=== PATIENT | male | born 1955 | race Caucasian/White ===

== ENCOUNTER 2016-05-10 16:28 | Inpatient (IN) | payer MEDICARE ==
--- NOTE | ~2016-05-10 | DS ---
Discharge Summary [facility] [address] [place]. [address] NAME: JOEL ROMANO : 55 STATUS : DIS IN PAT#: [id number] AGE: 61 ADM/REG DATE : 05/10/16 MR#: [id number] REPORT SERV DATE: 05/15/16 DICTATED BY: BRYANT HERNANDEZ DATE: 05/13/16 REPORT STATUS : Draft TRANSCRIBED BY: MODL DATE: 05/13/16 ADMISSION DATE: 05/10/2016 DISCHARGE DATE: 05/13/2016 DISCHARGE DIAGNOSES: 1. Buqol-on-fwolqot systolic congestive heart failure. 2. End-stage ischemic cardiomyopathy. 3. Chronic kidney disease stage 3 to 4. 4. Uncontrolled type 1 diabetes mellitus with multiple complications. 5. Hypertension. 6. Probable history of cerebrovascular accident in the past that was not worked up. 7. Hyperlipidemia. 8. Cachexia of chronic medical disease. 9. Paroxysmal atrial fibrillation. 10.Hypothyroidism. 11.Peripheral vascular disease due to diabetes. 12.Chronic obstructive pulmonary disease with ongoing tobacco abuse. 13.Benign prostatic hypertrophy with urinary retention in the past. 14.History of hematuria in the past. 15.Hypothyroidism. 16.Insomnia. 17.Medical noncompliance. 18.Peripheral neuropathy due to type 1 diabetes mellitus. 19.Restless legs syndrome. 20.Secondary hyperparathyroidism. CONSULTANTS DURING THIS HOSPITALIZATION: Dr. Chaz Vang of Cardiology. Dr. Aleyda Alcaraz of Nephrology. INVASIVE PROCEDURES DONE DURING THIS HOSPITALIZATION: None. BRIEF HISTORY OF PRESENT ILLNESS: The patient is a 61-year-old male with multiple comorbidities and complicated medical history, presented to the hospital with shortness of breath and heart racing, so he was admitted. For detailed history and physical exam, please see note dictated by myself on 05/10/2016. HOSPITAL COURSE: After being admitted to the hospital, this patient was started on IV Bumex. It was noted that the patient had high risk of cardiorenal syndrome because of his low blood pressure, elevated creatinine. Nephrology and Cardiology consultations were obtained. His other medical issues were treated. His home medications were addressed as well. Cardiology's recommendation was to treat his volume overload and was to seek hospice care given his overall long-term medical issues. Two-dimensional echocardiogram was performed, which revealed an ejection fraction of 15% to 20%. Dr. Alcaraz from Nephrology saw the patient in consultation as well and recommended that he was not a good candidate for hemodialysis because of his severe ischemic cardiomyopathy and agreed with seeking hospice. We discussed care with the patient and the family on multiple occasions and all subspecialty Discharge Summary [facility] [address] [place]. [address] NAME: JOEL ROMANO : 55 STATUS : DIS IN PAT#: [id number] AGE: 61 ADM/REG DATE : 05/10/16 MR#: [id number] REPORT SERV DATE: 05/15/16 DICTATED BY: BRYANT HERNANDEZ DATE: 05/13/16 REPORT STATUS : Draft TRANSCRIBED BY: MODL DATE: 05/13/16 physicians discussing the same care. The patient had some reluctance about choosing hospice or palliative care medicine. Dr. Henderson was asked to see the patient and after discussion and meeting with Dr. Henderson, we all agreed that the patient was best candidate for hospice. The patient chose to have hospice, however, he wanted to return to [place] with his son. The patient was seen by [facility] here in the hospital and a plan was decided that the patient will be discharged from the hospital and then within the next 48 hours, return to [place] where he will be enrolled in hospice. Today, I have discussed with the patient that he will be enrolling in hospice in [place]. The patient says he will be leaving here as a regular discharge and then traveling to [place] to meet his and then travel back to [place] for enrolling in hospice. I have answered all questions to the best of my knowledge for the patient and the family. At this time, he remains fairly stable and is being discharged in stable condition. DISCHARGE DISPOSITION: Home with hospice. DISCHARGE ACTIVITY: As tolerated. DISCHARGE DIET: Low sodium, 1800-calorie [employer] diet. DISCHARGE MEDICATIONS: Bumex 2 mg twice daily, Levemir 14 units subcutaneously once every morning, Novolin insulin 6 units before breakfast, Imdur 15 mg every morning, levothyroxine 50 mcg once daily, Toprol-XL 25 mg once every morning, Coumadin 2 mg once with supper, hydralazine 10 mg once every 8 hours, potassium 20 mEq once daily. DISCHARGE FOLLOWUP: With [facility] in [place], [place]. More than 35 minutes spent planning this patient's discharge, reconciling medications, discussing hospice, and arranging hospice and documenting this discharge. MARSHALL/GOLDENL Bryant Hernandez M.D. / [id number] CC: Bryant Hernandez M.D.
--- NOTE | ~2016-05-10 | CN ---
Consultation Report [facility] [address] [place]. [address] NAME: JOEL AMAYA : 55 STATUS : ADM IN PAT#: [id number] AGE: 61 ADM/REG DATE : 05/10/16 MR#: [id number] REPORT SERV DATE: 05/11/16 DICTATED BY: CHAZ QUEEN DATE: 05/10/16 REPORT STATUS : Draft TRANSCRIBED BY: MODL DATE: 05/10/16 CARDIOVASCULAR CONSULTATION DATE OF CONSULTATION: 05/10/2016 INDICATION: Congestive heart failure. HISTORY OF PRESENT ILLNESS: Mr. Amaya is a 61-year-old man previously living in [place], [place] and receiving most of his medical care at [place], [place]. He has a longstanding history of type 1 diabetes since he was age 8. He has been noncompliant with management of his diabetes. Until recently, he has been a regular smoker. He has an extensive history of coronary disease, ischemic cardiomyopathy status post defibrillator, COPD, and chronic kidney disease. He was told in a recent hospital visit by his medical team in [place] that he needed hospice. His son did some research and brought him to [facility] for rehab instead. The patient is now admitted through the emergency room with worsening dyspnea. He is in acute on chronic systolic congestive heart failure. Unfortunately, we have no records from his prior medical care and this is his first hospitalization in the [facility] [place]. He is mainly complaining of shortness of breath. In examining the patient in the room, it is clear he is having Julio C-Diana respiration. PAST MEDICAL HISTORY: 1. Longstanding history of coronary artery disease, details unclear. 2. Ischemic cardiomyopathy, reported EF less than 20%. 3. Status post ICD. 4. COPD. 5. Chronic kidney disease. ALLERGIES: NO KNOWN DRUG ALLERGIES. MEDICATIONS: Lasix 40 mg daily, hydralazine 10 mg every 8 hours, insulin, Imdur 30 mg daily, Synthroid, magnesium oxide, Toprol-XL 25 mg daily, Coumadin, potassium. SOCIAL HISTORY: He is a former smoker. He does not drink alcohol. FAMILY HISTORY: There is no family history of early coronary artery disease. REVIEW OF SYSTEMS: A complete review of systems was obtained from the patient and the family, which is negative in detail except as mentioned above in the HPI. PHYSICAL EXAMINATION: BLOOD PRESSURE: 110/70. PULSE: Heart rate of 75 and regular. RESPIRATIONS: Respiratory Consultation Report [facility] [address] [place]. [address] NAME: JOEL AMAYA : 55 STATUS : ADM IN PAT#: [id number] AGE: 61 ADM/REG DATE : 05/10/16 MR#: [id number] REPORT SERV DATE: 05/11/16 DICTATED BY: CHAZ QUEEN DATE: 05/10/16 REPORT STATUS : Draft TRANSCRIBED BY: NED DATE: 05/10/16 rate of 14. GENERAL: This is a cachectic man, who appears older than his stated age. HEENT: Anicteric. No xanthelasma. Lips without cyanosis. NECK: No JVD. Carotids 2+ and symmetric. No carotid bruits. LUNGS: There is dullness to percussion and auscultation at both bases. COR: Regular rate and rhythm. Normal S1, S2. There is an S3. There is a grade 2/6 holosystolic murmur at the left lower sternal border. ABD: Soft, nontender, nondistended. Normal bowel sounds. No abdominal bruits. EXT: There is 1+ bilateral lower extremity edema. SKIN: Warm. Dry. No venous stasis changes. MS: No kyphosis. NEURO/PSYCH: Oriented x3. No anxiety or depression. LABORATORY STUDIES: White count of 5.9, hematocrit of 32. BNP of 3202. Troponin of 0.03, creatinine of 2.52, potassium of 4.9. EKG: A 12-lead EKG shows sinus rhythm at 75 beats per minute. Intraventricular conduction delay is noted. Left anterior fascicular block. Left ventricular hypertrophy with repolarization abnormalities noted. IMPRESSION: This is a 61-year-old man with multiple chronic medical problems including over 50 years of poorly controlled type 1 diabetes, recent smoking with chronic obstructive pulmonary disease, and extensive history of ischemic coronary disease with an ischemic cardiomyopathy and ICD placement. He is admitted with acute renal failure, acute on chronic congestive heart failure, and to me it looks like this is the end of the road for Mr. Amaya. He is experiencing Julio C-Diana respiration. He is volume overloaded, yet his creatinine is significantly elevated. He was advised to seek hospice care by his long-term medical providers in [place]. We will check an echocardiogram and records from his recent medical evaluations in [place], but I think hospice is likely the best outcome for this patient. BHARAT/NED Chaz Queen M.D. / [id number] CC: Bryant Hernandez M.D.
--- NOTE | ~2016-05-10 | CN ---
Consultation Report [facility] [address] [place]. [address] NAME: JOEL ROMANO : 55 STATUS : ADM IN PAT#: [id number] AGE: 61 ADM/REG DATE : 05/10/16 MR#: [id number] REPORT SERV DATE: 05/11/16 DICTATED BY: ALEYDA BAILON DATE: 05/11/16 REPORT STATUS : Draft TRANSCRIBED BY: MODL DATE: 05/11/16 CONSULTATION DATE OF CONSULTATION: REASON: Acute kidney injury with hyperkalemia and acute on chronic CHF with poorly controlled diabetes mellitus. HISTORY OF PRESENT ILLNESS: This is a very pleasant 61-year-old male patient, who recently relocated to the [facility]. Historically, he has lived in the [facility] and received the bulk of his medical care. Therefore, little data exist here locally of his recent laboratories and findings. The patient states that he was relocated here in effort to improve his current medical situation in regard to his difficulty with controlling his diabetes mellitus as well as his known weakened cardiac status. He had been recently transitioned to [facility] here and started having some low blood pressures, increasing heart rate, and increasing shortness of breath, and was transitioned here to [facility] for evaluation. The patient has end-stage known ischemic cardiomyopathy with renal failure with unknown baseline of these medical diseases due to his previous geographic location and recent relocation. According to reports, there was some expression of possible need for end-of-life planning rather from [facility] physician. The patient's creatinine here on presentation was at 2.52 and has risen to 2.80 with the administration of Bumex drip for volume overload. He also developed hyperkalemia with a potassium of 5.9, which required medical treatment with D50 diuretics and insulin. We were asked to evaluate the patient in light of his worsening renal dysfunction, known ischemic cardiomyopathy, and provide opinion regarding current renal dysfunction and possible treatment courses. The patient is awake and alert, sitting at the bedside with his family who is present during evaluation and provides assistance in recent medical data. He denies current chest pain. He is at baseline somewhat short of breath, but not overtly tachypneic. No nausea, vomiting, or diarrhea. SOCIAL HISTORY: Socially, no ETOH. No illicit drugs. The long history of tobacco abuse. PAST MEDICAL HISTORY: According to available dictations as well as the patient on evaluation is significant for chronic systolic congestive heart failure, chronic kidney disease stage III to stage IV, ischemic cardiomyopathy, uncontrolled diabetes mellitus, peripheral neuropathy, retinopathy, vasculopathy due to diabetes, hypertension, COPD with ongoing tobacco abuse. Question of two previous CVAs that were not worked up, history of hyperlipidemia, paroxysmal atrial fibrillation and chronic anticoagulation. SURGICAL HISTORY: Positive for his previous CABG in 2013, also tonsillectomy. ALLERGIES: HE LISTS NO KNOWN DRUG ALLERGIES. MEDICATIONS: Current active medications include the following: Bumex 2 mg IV q.8 hours, Consultation Report [facility] [address] [facility] [place]. [address] NAME: JOEL ROMANO : 55 STATUS : ADM IN [facility]#: [id number] AGE: 61 ADM/REG DATE : 05/10/16 MR#: [id number] REPORT SERV DATE: 05/11/16 DICTATED BY: ALEYDA BAILON DATE: 05/11/16 REPORT STATUS : Draft TRANSCRIBED BY: NED DATE: 05/11/16 heparin 5000 units subcu, Apresoline 10 mg p.o. q.8, insulin via sliding scale and regular scheduled 6 units subcu, isosorbide mononitrate 50 mg daily, levothyroxine 50 mcg daily, metoprolol 25 mg daily, multivitamin one tab p.o. daily, potassium SR 20 mEq p.o. daily, warfarin 2 mg p.o. daily, insulin Levemir 14 units subcu daily, p.r.n. medications for anti- pain, antiemetics, anti-hypertensives, electrolyte protocol. REVIEW OF SYSTEMS: Review of systems is completed. Please see HPI for pertinent details. PHYSICAL EXAMINATION: VITAL SIGNS: Blood pressure at 169/74, respiratory rate is 18, heart rate 75 beats per minute, 96.8 temperature. GENERAL: He is awake, alert, oriented, cachectic appearing chronically ill-appearing male. The patient sitting at bedside during evaluation. HEENT: Normocephalic and atraumatic. Normal ocular movements. No scleral icterus or conjunctival pallor is appreciated. NECK: Supple without thyromegaly. No JVD or mass. CHEST: Shows positive S1 and S2. No rubs or gallops. LUNGS: Diminished throughout with normal expansion and effort bilaterally. Late crackles at bases without overt rhonchi or wheezes. GI: Shows a rounded obese abdomen without appreciable mass or tenderness. : Deferred. EXTREMITIES: Show positive pulses. No clubbing, cyanosis, or edema. NEUROLOGIC: Appears to be grossly intact. Nonfocal. SKIN: Warm, dry, and intact to visualized surfaces. No rash, lesions, or ecchymosis. PSYCHIATRIC: He appears to be of appropriate mood and affect. Somewhat somnolent, but aware and appropriate. LABORATORY DATA: Pertinent laboratories and imaging to this evaluation: Most recent potassium recheck at 4.3. PA chest and lateral shows developing asymmetric central lateral venous lung consolidation concerning for pneumonia versus asymmetric edema, likely superimposed upon basilar pulmonary fibrotic disease. Most recent electrolyte profile: Sodium 132, potassium 5.9, chloride 101, CO2 17, BUN 62, creatinine 2.80, reflected GFR at 23 mL/minute. Calcium 8.2, phosphorus 5.7, albumin 2.3. WBC is 6.4, RBC 3.73, hemoglobin 11.7, hematocrit 33.9, platelets at 211. BNP 4935.5. Noted ejection fraction on most recent echo at 10% to 15%. IMPRESSION AND PLAN: This is a chronic kidney disease stage III to stage IV 61-year-old male patient, recent relocation here for ongoing medical care with known cardiomyopathy with worsening ejection fraction now at 10% to 15%. Evaluation by Cardiology today with suggestions for palliative/hospice care. His hyperkalemia has been successfully treated. He has been removed at this point from potassium supplementation. He is not overtly tachypneic and appears to be reasonably volume stable post dosing diuretics, but threshold would be low to return him to a Bumex drip if clinically warranted. Unfortunately, in light of his worsening ischemic cardiomyopathy with decreased ejection Consultation Report [facility] [address] [place]. [address] NAME: JOEL ROMANO : 55 STATUS : ADM IN PAT#: [id number] AGE: 61 ADM/REG DATE : 05/10/16 MR#: [id number] REPORT SERV DATE: 05/11/16 DICTATED BY: ALEYDA BAILON DATE: 05/11/16 REPORT STATUS : Draft TRANSCRIBED BY: MODL DATE: 05/11/16 fraction, he would not be a viable dialysis candidate. This is discussed with the patient as well as his family this afternoon in detail during evaluation. They understand his current medical situation and are willing to be evaluated by palliative and/or hospice care. The patient's primary concern at this point appears to be that he is able to spend his remaining time with his family, which is primarily located in the [facility] area as the patient states that he and his are in the [facility], however, his children live in [facility]. Would continue current IV diuretic dosing, modify based off his volume status, avoid potassium supplementation. Plan for evaluation by Palliative Services today and transition the patient to palliative/hospice as these services become available to transition him to the [facility] area as his wishes are currently. Further modification of the treatment plan may be made based on clinical presentation, patient laboratory results, further consultation with renal attending. We appreciate consultation. We are glad to follow this patient with you. DICTATED BY: Vipin Lindo NP JR/NED Aleyda Bailon M.D. / [id number] CC: Bryant Hernandez M.D.
--- NOTE | ~2016-05-10 | HP ---
History And Physical [place] [id number] [facility] [place]. [address] NAME: JOEL ROMANO : 55 STATUS : ADM IN PAT#: [id number] AGE: 61 ADM/REG DATE : 05/10/16 MR#: [id number] REPORT SERV DATE: 05/11/16 DICTATED BY: BRYANT ISRAEL DATE: 05/10/16 REPORT STATUS : Draft TRANSCRIBED BY: MODHerb DATE: 05/10/16 DATE OF ADMISSION: 05/10/2016 CHIEF COMPLAINT: Shortness of breath and heart racing. HISTORY OF PRESENT ILLNESS: The patient is a 61-year-old white male, who was admitted to [facility] last from [place], [place] without any local physicians. All his physicians located in [place] or [facility] as well as in [place]. Reportedly, came here for diabetes management at [facility]. This patient started having some hypotension. He was having increasing heart rate, increasing shortness of breath. This patient has end-stage ischemic cardiomyopathy with renal failure, unknown baselines of these medical diseases at this time, but the [facility] physician had expressed some concerns for possibly end of life issues and hospice, however, the patient wanted to be a full code, so he was transferred to the emergency room. This patient has had significant persistent orthopnea despite compensation of his CHF. He continually has shortness of breath, but has never met requirements to have home O2. He denied any lower extremity swelling. He denied any chest pain, even though he was given sublingual nitroglycerin in the ambulance. He has not had any fever or chills. He has not had any nausea or vomiting. His urine has been somewhat darker than usual. He has not had any burning pain or dysuria. He has not had any blood in the urine. No diarrhea. No constipation. He said he initially lost about 20 pounds. He has gained about 10 pounds in the last week or so. He denies any paroxysmal dyspnea. He has had significant exertional dyspnea. When he was brought to the hospital, he was found to have a BNP of 3200 with a creatinine of 2.49, so he has been referred to the Hospitalist Service for further treatment and evaluation. REVIEW OF SYSTEMS: A 12-point review of systems otherwise is negative, except for what is noted in the HPI. 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 He has had hypertension. He has COPD. He states that he may have had two strokes, never worked up. He also has hyperlipidemia. He has paroxysmal atrial fibrillation and is on chronic anticoagulation. PAST SURGICAL HISTORY: Significant for CABG in 2013. He also has had a tonsillectomy. This patient denies any history of sleep apnea. ALLERGIES: NO KNOWN DRUG ALLERGIES. HOME MEDICATIONS: Lasix 40 mg every morning, hydralazine 10 mg every eight hours, Levemir 14 units subcutaneously every morning and Novolin 6 units subcutaneously at breakfast, Imdur 15 mg every morning, levothyroxine 50 mcg once daily, magnesium oxide 400 mg daily, Lopressor XL 25 mg every morning, potassium 20 mEq once every morning, and Coumadin 2 mg once at supper time. History And Physical [address] [address] NAME: JOEL ROMANO : 55 STATUS : ADM IN [facility]#: [id number] AGE: 61 ADM/REG DATE : 05/10/16 MR#: [id number] REPORT SERV DATE: 05/11/16 DICTATED BY: BRYANT ISRAEL DATE: 05/10/16 REPORT STATUS : Draft TRANSCRIBED BY: NED DATE: 05/10/16 SOCIAL HISTORY: This patient has been a smoker for last 40 years, off and on, has smoked up to pack a day. He did quit for at least one to two years after his CABG, but then once he got better, he started smoking again. He denies use of alcohol. He denies use of illicit substances. Retired from a newspaper editing job. FAMILY HISTORY: Brother with some sort of tachycardia and heart disease, but otherwise unremarkable. PHYSICAL EXAMINATION: GENERAL: White male, cachectic-appearing, obvious respiratory [id number]-ed-[id number] distress. He is awake and alert. He is oriented. VITAL SIGNS: Upon arrival to the emergency room, blood pressure was 115/78, temperature is 97, pulse 75, saturation of 99% on 2 L of O2. HEENT: Head is normocephalic, atraumatic. Pupils are equal, round, and reactive to light. Extraocular muscles are intact. Sclerae are anicteric. Conjunctivae normal. Oropharynx without lesion. Tongue protrusion midline. Uvula midline. NECK: Supple. There is jugular venous distention about 3 cm from the clavicular line. No lymphadenopathy in the neck is palpable. HEART: Mild tachycardia, regular rate and rhythm. There is two over soft systolic murmur. Positive S3 gallop is noted. LUNGS: Diffuse bilateral crackles. No rales or rhonchi are noted. Crackles heard at least long term up both lungs. ABDOMEN: Slightly protuberant, soft, nontender, good bowel sounds. No rebound or guarding. No organomegaly. EXTREMITIES: Without cyanosis or clubbing, however, chronic venostasis and dryness of the skin is noted. Pulses are poorly palpable in both lower extremities. Cool to touch. NEUROLOGIC: Cranial nerves II through XII are grossly intact. Motor development and functioning appears to be normal. Strength is equal and symmetrical. Typical muscle wasting of diabetic neuropathy is noted with stocking and glove type of sensorineural loss is noted as well. LABORATORY DATA: Sodium of 137, potassium 4.9, chloride 103, bicarbonate 25, BUN 49, creatinine 2.52, glucose of 309, calcium is 7.8, magnesium 2.5, troponin is 0.03. BNP is 32, O2 of 0.3, lactate level of 2.0, white count is 5.9, hemoglobin of 11.1, hematocrit of 32, platelet count is 218,000. PTT is 44, PT is 25, INR of 2.4. Urinalysis unremarkable. IMAGING: Chest x-ray: Cardiomegaly, moderate to severe failure, suspect there may be underlying chronic pulmonary fibrotic changes as well. EKG: Sinus rhythm with first-degree AV block, left anterior fascicular block. Left ventricular hypertrophy. Nonspecific T-wave changes, most likely repolarization in the lateral leads. IMPRESSION: 1. Ywwju-un-hvwhout systolic congestive heart failure. 2. Ischemic cardiomyopathy. 3. Chronic kidney disease with possible acute kidney injury, unknown baseline at this time. 4. Uncontrolled type 2 diabetes mellitus with multiple complications. History And Physical [address] [address] NAME: JOEL ROMANO : 55 STATUS : ADM IN [facility]#: [id number] AGE: 61 ADM/REG DATE : 05/10/16 MR#: [id number] REPORT SERV DATE: 05/11/16 DICTATED BY: BRYANT ISRAEL DATE: 05/10/16 REPORT STATUS : Draft TRANSCRIBED BY: NED DATE: 05/10/16 5. Chronic obstructive pulmonary disease. 6. Hypertension. 7. History of possible cerebrovascular accident. 8. Hyperlipidemia. 9. Cachexia of chronic medical disease. 10.Paroxysmal atrial fibrillation, on chronic anticoagulation. 11.Hypothyroidism. PLAN: The patient will be admitted. IV Bumex will be started. This patient is at high risk for cardiorenal syndrome given his blood pressure. We will ask Nephrology and Cardiology to consult in this very medically complicated patient. Check labs and x-rays. Obtain records from primary care, Nephrology, Cardiology, and hospitals in [place]. Poor prognosis at this time. The patient wants to be a full code. I have discussed his care with the family and the patient. They understand and agree with the current plan of care. MARSHALL/NED Bryant Isarel M.D. / [id number] CC: Bryant Israel M.D.
[2016-05-10 16:20] LABS: BASOPHILS 0.8 %; BASOPHILS ABSOLUTE 0.05 10/3/uL (0.0-0.16); EOSINOPHILS 0.3 %; EOSINOPHILS ABSOLUTE 0.02 10/3/uL (0.0-0.53); HEMATOCRIT 32.7 % (40.0-51.0); HEMOGLOBIN 11.1 g/dL (13.6-17.8); IMMATURE GRANULOCYTES 0.3 %; IMMATURE GRANULOCYTES ABSOLUTE 0.02 10/3/uL (0.0-0.11); LYMPHOCYTES 15.3 %; LYMPHOCYTES ABSOLUTE 0.91 10/3/uL (0.67-4.30); MEAN CORPUS HGB CONC 33.9 g/dL (32.0-36.0); MEAN CORPUSCULAR HEMOGLOB 30.8 pg (26.0-34.0); MEAN CORPUSCULAR VOLUME 90.8 fL (80-100); MONOCYTES 9.9 %; MONOCYTES ABSOLUTE 0.59 10/3/uL (0.21-1.20); NEUTROPHILS 73.4 %; NEUTROPHILS ABSOLUTE 4.34 10/3/uL (2.02-8.40); PLATELET COUNT 218 10/3/uL (150-400); RBC DISTRIBUTION WIDTH 16.7 % (12.0-16.0); WHITE BLOOD CELLS 5.9 10/3/uL (4.5-10.5)
[2016-05-10 16:23] LABS: MANUAL DIFF NO %
[2016-05-10 16:29] LABS: INTERNATIONAL NORMAL RATI 2.4 UNITS (-); PARTIAL THROMBO TIME 44.3 SEC (22.5-37.2); PROTIME (NOT ORD) 25.8 SEC (12.0-14.5)
[2016-05-10 16:37] LABS: BUN (BLOOD UREA NITROGEN) 49 MG/DL (6-23); CALCIUM, SERUM 7.8 MG/DL (8.5-10.4); CHEST PAIN PROFILE TAT 0 Hrs 23 Mins; CHLORIDE, SERUM 103 MMOL/L (96-112); CO2 (CARBON DIOXIDE) 25 MMOL/L (24-34); CREATININE 2.52 MG/DL (0.70-1.30); GFR AFRICAN AMERICAN 31 ML/MIN (>=60); GFR NON AFRICAN AMERICAN 26 ML/MIN (>=60); GLUCOSE, SERUM 309 MG/DL (60-99); POTASSIUM, SERUM 4.9 MMOL/L (3.5-5.3); SODIUM, SERUM 137 MMOL/L (135-148); TROPONIN I 0.03 NG/ML (<0.05)
[2016-05-10 17:16] LABS: ASCORBIC ACID (UR NOT ORDER) NEG (NEG); BILIRUBIN, URINE NEGATIVE (NEG); ER URINALYSIS TAT 0 Hrs 14 Mins; KETONE, URINE NEGATIVE (NEG); LEUKOCYTE ESTERASE(NOT OR TRACE (NEG); NITRITE (URINE) NEG (NEG); WBC (NOT ORDERED) (RFLEX) 9 (0-5)
[2016-05-10] MEDS ORDERED: INSNOVR SC (18:24)
[2016-05-10] MEDS ORDERED: C2 PO (18:25)
[2016-05-10] MEDS ORDERED: APRES10B PO ×2 (18:26→18:27)
[2016-05-10] MEDS ORDERED: SYN.05 PO (18:26)
[2016-05-10] MEDS ORDERED: LEVEMIR SC (18:27)
[2016-05-10] MEDS ORDERED: MAGOX4 PO (18:28)
[2016-05-10] MEDS ORDERED: L40 PO (18:28)
[2016-05-10] MEDS ORDERED: KLOR-CON M2020 MEQ PO (18:28)
[2016-05-10] MEDS ORDERED: TOPXL25 PO (18:29)
[2016-05-10] MEDS ORDERED: IMDUR30 PO (18:29)
[2016-05-10 20:57] LABS: PROCALCITONIN 0.41 ng/mL (<0.5)
[2016-05-10 21:18] LABS: FREE T4 1.12 NG/DL (0.76-1.46); PHOSPHORUS, SERUM 3.7 MG/DL (2.5-4.5)
[2016-05-11 05:05] LABS: BASOPHILS 0.2 %; BASOPHILS ABSOLUTE 0.01 10/3/uL (0.0-0.16); EOSINOPHILS 0 %; HEMATOCRIT 33.9 % (40.0-51.0); HEMOGLOBIN 11.7 g/dL (13.6-17.8); IMMATURE GRANULOCYTES 0.3 %; IMMATURE GRANULOCYTES ABSOLUTE 0.02 10/3/uL (0.0-0.11); LYMPHOCYTES 7.5 %; LYMPHOCYTES ABSOLUTE 0.48 10/3/uL (0.67-4.30); MEAN CORPUS HGB CONC 34.5 g/dL (32.0-36.0); MEAN CORPUSCULAR HEMOGLOB 31.4 pg (26.0-34.0); MEAN CORPUSCULAR VOLUME 90.9 fL (80-100); MONOCYTES 2.3 %; MONOCYTES ABSOLUTE 0.15 10/3/uL (0.21-1.20); NEUTROPHILS 89.7 %; NEUTROPHILS ABSOLUTE 5.76 10/3/uL (2.02-8.40); PLATELET COUNT 211 10/3/uL (150-400); RBC DISTRIBUTION WIDTH 16.5 % (12.0-16.0); RED CELL COUNT 3.73 10/6/uL (4.7-6.1); WHITE BLOOD CELLS 6.4 10/3/uL (4.5-10.5)
[2016-05-11 05:07] LABS: INTERNATIONAL NORMAL RATI 2.5 UNITS (-)
[2016-05-11 05:08] LABS: MANUAL DIFF NO %
[2016-05-11 05:35] LABS: ALBUMIN 2.3 G/DL (3.5-5.0); CALCIUM, SERUM 8.2 MG/DL (8.5-10.4); CHLORIDE, SERUM 101 MMOL/L (96-112); GFR AFRICAN AMERICAN 27 ML/MIN (>=60); GFR NON AFRICAN AMERICAN 23 ML/MIN (>=60); SODIUM, SERUM 132 MMOL/L (135-148)
[2016-05-11 05:37] LABS: BUN (BLOOD UREA NITROGEN) 62 MG/DL (6-23); CO2 (CARBON DIOXIDE) 17 MMOL/L (24-34); GLUCOSE, SERUM 427 MG/DL (60-99); PHOSPHORUS, SERUM 5.7 MG/DL (2.5-4.5); POTASSIUM, SERUM 5.9 MMOL/L (3.5-5.3)
[2016-05-12 05:22] LABS: INTERNATIONAL NORMAL RATI 3.3 UNITS (-)
[2016-05-12 05:24] LABS: PROTIME (NOT ORD) 33.3 SEC (12.0-14.5)
[2016-05-12 05:33] LABS: ALBUMIN 2.1 G/DL (3.5-5.0); BUN (BLOOD UREA NITROGEN) 63 MG/DL (6-23); CALCIUM, SERUM 8.3 MG/DL (8.5-10.4); CHLORIDE, SERUM 103 MMOL/L (96-112); CO2 (CARBON DIOXIDE) 23 MMOL/L (24-34); CREATININE 2.71 MG/DL (0.70-1.30); GFR AFRICAN AMERICAN 28 ML/MIN (>=60); GFR NON AFRICAN AMERICAN 24 ML/MIN (>=60); POTASSIUM, SERUM 3.6 MMOL/L (3.5-5.3); SODIUM, SERUM 137 MMOL/L (135-148)
[2016-05-12 05:34] LABS: GLUCOSE, SERUM 200 MG/DL (60-99)
[2016-05-13 05:32] LABS: INTERNATIONAL NORMAL RATI 2.9 UNITS (-); PROTIME (NOT ORD) 30.2 SEC (12.0-14.5)
[2016-05-13 05:44] LABS: ALBUMIN 2.1 G/DL (3.5-5.0); BUN (BLOOD UREA NITROGEN) 51 MG/DL (6-23); CALCIUM, SERUM 7.7 MG/DL (8.5-10.4); CHLORIDE, SERUM 100 MMOL/L (96-112); CO2 (CARBON DIOXIDE) 27 MMOL/L (24-34); GFR AFRICAN AMERICAN 36 ML/MIN (>=60); GFR NON AFRICAN AMERICAN 31 ML/MIN (>=60); GLUCOSE, SERUM 167 MG/DL (60-99); PHOSPHORUS, SERUM 3.5 MG/DL (2.5-4.5); POTASSIUM, SERUM 3.5 MMOL/L (3.5-5.3); SODIUM, SERUM 139 MMOL/L (135-148)
[2016-05-13] MEDS ORDERED: BUM2 PO (10:14)
== END 2016-05-13 15:56 | disposition hospice, home (50) | DRG 291 ==
LOC: ER 16:28 → 6NO 18:45
PROVIDERS: Emergency Medicine; Internal Medicine; Registered Nurse
DX: I13.0 Hypertensive heart and chronic kidney disease with heart failure and stage 1 through stage 4 chronic kidney disease, or unspecified chronic kidney disease (principal); I50.23 Acute on chronic systolic (congestive) heart failure; R64 Cachexia; R06.3 Periodic breathing; N17.9 Acute kidney failure, unspecified; N18.4 Chronic kidney disease, stage 4 (severe); E10.22 Type 1 diabetes mellitus with diabetic chronic kidney disease; E10.51 Type 1 diabetes mellitus with diabetic peripheral angiopathy without gangrene; I48.0 Paroxysmal atrial fibrillation; G25.81 Restless legs syndrome; Z51.5 Encounter for palliative care; I25.5 Ischemic cardiomyopathy; F17.210 Nicotine dependence, cigarettes, uncomplicated; J44.9 Chronic obstructive pulmonary disease, unspecified; E10.65 Type 1 diabetes mellitus with hyperglycemia; E03.9 Hypothyroidism, unspecified; E78.5 Hyperlipidemia, unspecified; E21.3 Hyperparathyroidism, unspecified; N40.1 Benign prostatic hyperplasia with lower urinary tract symptoms; R33.8 Other retention of urine; R19.7 Diarrhea, unspecified; Z68.22 Body mass index [BMI] 22.0-22.9, adult; Z79.01 Long term (current) use of anticoagulants; Z79.4 Long term (current) use of insulin; Z86.73 Personal history of transient ischemic attack (TIA), and cerebral infarction without residual deficits; Z91.19 Patient's noncompliance with other medical treatment and regimen; Z95.810 Presence of automatic (implantable) cardiac defibrillator
CPT/HCPCS: 71010; 71020; 80048; 80069; 81001; 82962; 83605; 83735; 83880; 84100; 84132; 84145; 84439; 84443; 84484; 85025; 85610; 85730; 93005; 94640; 96374; 96375; 97161-GP; 99285; A9270-GY; C8929; G8978-CK-GP; G8979-CI-GP; J1940; J2930; Q9957